=== PATIENT | female | born 1995 | race Two or more races ===

== ENCOUNTER 2024-11-09 19:41 | Emergency (ER) | payer MEDICAID, SELFPAY ==
[2024-11-09 19:42] VITALS: BMI 38.9
[2024-11-09 21:08] VITALS: BP 125/83; PULSE 73; RESP 18; TEMP 36.8; O2SAT 96
[2024-11-09] MEDS: DEXAMETHASONE SOD PHOS INJ 10 MG/ML VIAL PO (22:31)
--- NOTE | 2024-11-10 00:43 | XR_ITS ---
Examination: Ribs, left, with PA chest, 5 views Technique: Chest PA, RIBS AP, RPO, LPO, AP coned lower ribs 5 views Exam date and time: November 10, 2024 0053 hours INDICATIONS: Coughing with left rib pain today Findings: Normal heart size No pneumothorax No acute rib fractures IMPRESSION: No pneumothorax pulmonary contusion or hemothorax No acute rib fractures
--- NOTE | 2024-11-10 01:39 | PRELIM_ITS ---
Radiographs of the left ribs and chest (4 views). October 0053 hours. Clinical History: Pain with coughing Comparison: No prior study is available for comparison. Findings: The lungs are clear. There is no pleural effusion or pneumothorax. The cardiomediastinal silhouette is normal. There is no evidence of rib fracture. Impression: No evidence of rib fracture or pneumothorax. Report Electronically Signed By: Bishnu Jung 11/10/2024 1:38:28 AM [EST]
[2024-11-10 01:52] LABS: Basophils % (Auto) 0 % (0-2.5); Eosinophils % (Auto) 0 % (0-10); Hematocrit 38.6 % (36.0-46.0); Hemoglobin 13.5 g/dL (12.0-16.0); Immature Granulocytes % (Auto) 1 % (0-0); Immature Granulocytes Auto 0.14 Thou/mm3 (0.00-0.00); Lymphocytes # (Auto) 1.1 Thou/mm3 (1.0-4.8); Lymphocytes % (Auto) 8 % (10-50); Mean Corpuscular Hemoglobin 28.9 pg (25.0-35.0); Mean Corpuscular Volume 83 fL (80-100); Monocytes # (Auto) 0.4 Thou/mm3 (0.0-0.8); Monocytes % (Auto) 3 % (0-12); Neutrophils # (Auto) 11.5 Thou/mm3 (1.8-7.7); Neutrophils % (Auto) 87 % (37-80); Nucleated Red Blood Cell % 0 /100 WBC (0); Platelet Count 392 Thou/mm3 (140-440); RDW Standard Deviation 39.4 fL (36.4-46.3); Red Blood Count 4.67 Miln/mm3 (4.00-5.20); White Blood Count 13.1 Thou/mm3 (3.6-11.0)
[2024-11-10 02:04] VITALS: BP 122/85; PULSE 66; RESP 19; TEMP 36.7; O2SAT 96
[2024-11-10 02:18] LABS: D-Dimer < 250 ng/mL (<600)
[2024-11-10 02:20] LABS: Alanine Aminotransferase 58 U/L (10-49); Albumin, Serum 4.5 gm/dL (3.5-5.0); Albumin/Globulin Ratio 1.9 (1.2-2.2); Alkaline Phosphatase 88 U/L (46-116); Anion Gap 10 (7-16); Aspartate Amino Transferase 25 U/L (0-34); BUN/Creatinine Ratio 19 Ratio (12-20); Bilirubin,Total 0.4 mg/dL (0.3-1.2); Blood Urea Nitrogen 13 mg/dL (9-23); Calcium 9.2 mg/dL (8.3-10.6); Calcium (Corrected) 9.2 mg/dL (8.5-10.1); Carbon Dioxide 25.3 mMol/L (20.0-31.0); Chloride 106 mMol/L (98-107); Creatinine (Component) 0.7 mg/dL (0.6-1.3); Globulin 2.4 gm/dL (2.3-3.5); Glucose 123 mg/dL (74-106); Osmolality,Calculated 282 (275-295); Procalcitonin 0.04 ng/ml (0.0-0.49); Sodium 141 mMol/L (136-145); Total Protein 6.9 gm/dL (5.7-8.2); Troponin I < 0.002 ng/mL (0.0-0.045); eGFR > 60 See Note
--- NOTE | 2024-11-10 03:41 | PD.EDURI ---
Upper Respiratory Inf. RME/HPI General Chief Complaint: Flu Like Symptoms Stated Complaint: COUGH WITH LEFT RIB PAIN Time Seen by Provider: 11/09/24 21:10 Arrival date/time: 11/09/24 19:41 29F with no significant PMH presents to ED with 3 weeks of cough and 1 day of L rib pain when coughing. Patient finished a Z-izabela and course of Augmentin w/o relief. Limitations: no limitations Related Data Home Medications ?Medication ?Instructions ?Recorded ?Confirmed ondansetron 4 mg oral soluble film 4 mg PO Q8HR PRN Nausea 08/26/17 08/27/17 Previous Rx's ?Medication ?Instructions ?Recorded docusate sodium 100 mg capsule 100 mg PO BID #60 caps 08/27/17 (Colace) hydrocodone 7.5 mg-acetaminophen 1 tab PO Q6H PRN pain #25 tabs 08/27/17 325 mg tablet ([place]) Allergies Allergy/AdvReac Type Severity Reaction Status Date / Time aspirin Allergy Rash Verified 08/27/17 08:17 Review of Systems Review of Systems Systems Reviewed: All systems reviewed, normal except as documented Constitutional Constitutional: Reports system reviewed and no additional complaints, except as documented, Denies fever(s) and Denies headache(s) ENT Ears, Nose, Mouth, and Throat: Denies disequilibrium and Denies headache(s) Cardiovascular Cardiovascular: Reports system reviewed and no additional complaints, except as documented and Denies dyspnea Respiratory Respiratory: Reports system reviewed and no additional complaints, except as documented, Reports as per HPI, Reports cough, Denies dyspnea and Reports pain with cough Gastrointestinal Gastrointestinal: Reports system reviewed and no additional complaints, except as documented, Denies abdominal pain, Denies nausea and Denies vomiting Neurologic Neurologic: Reports system reviewed and no additional complaints, except as documented, Denies confusion, Denies disequilibrium and Denies headache(s) Psychiatric Psychiatric: Denies confusion Past Medical History Past Medical History NEUROLOGIC: Negative Neurological Disorders or Seizures CARDIAC: Negative Cardiac Disorders GASTROINTESTINAL: Negative Gastrointestinal Disorders GENITOURINARY: Negative Genitourinary Disorders REPRODUCTIVE: Negative Breast Cancer or Pelvic Inflammatory Disease MUSCULOSKELETAL: Negative Musculoskeletal Disorders ENDOCRINE: Negative Endocrine Disorders HEMATOLOGIC: Negative Blood Disorders OTHER HISTORY: Positive Chicken Pox; Negative Autoimmune Disease, Blood Transfusions, Blood Transfusion Reaction, Anesthesia Reactions, Organ Transplant, MRSA or Breast Cancer Family History FAMILY HISTORY: Positive Family Respiratory Disorders (ASTHMA MOTHER); Negative Family Psychiatric Problems, Family Cardiac Disorders, Family Gastrointestinal Problems, Family Cancer, Family Surgery or Family Anesthesia Reaction Surgical History SURGICAL: Negative Cardiac Surgery, Endocrine Surgery, Thyroidectomy, Ear Surgery, Abdominal Surgery, Nephrectomy, Joint Replacement, Neurologic Surgery, Mastectomy, Vasectomy or Organ Transplant Social History SMOKING STATUS: Never smoker ED Exam General Limitations: Present no limitations General appearance: Present alert and in no apparent distress Head Head exam: Present atraumatic Eye Eye exam: Present normal appearance, PERRL and EOMI ENT ENT exam: Present normal exam, normal oropharynx and mucous membranes moist Neck Neck exam: Present normal inspection, full ROM and trachea midline Chest Chest inspection: Present normal inspection and symmetric chest wall rise Respiratory Respiratory exam: Present normal lung sounds bilaterally Cardiovascular Cardiovascular exam: Present regular rate, normal rhythm and normal heart sounds Abdominal Exam Abdominal exam: Present soft and normal bowel sounds Extremities Exam Extremities exam: Present normal inspection and full ROM Back Exam Back exam: Present normal inspection and full ROM Neurological Exam Neurological exam: Present alert, oriented X3 and CN II-XII intact Psychiatric Psychiatric exam: Present normal affect and normal mood Skin Skin exam: Present warm, dry, intact and normal color Course Quality Measures none Orders Category Date Time Status XR ribs LT min 3V w CXR1V Stat Exams 11/10/24 00:43 Taken CBC Stat Lab 11/10/24 01:30 Completed CMP [Comprehensive Metabolic Panel] Stat Lab 11/10/24 01:30 Completed D-Dimer Stat Lab 11/10/24 01:30 Completed Procalcitonin Stat Lab 11/10/24 01:30 Completed Troponin I Stat Lab 11/10/24 01:30 Completed Dexamethasone Inj [Decadron Inj] Med 11/09/24 22:17 Discontinued 10 mg PO X1 ONE Vital Signs Vital signs: Vital Signs Temperature 98.2 F 11/09/24 21:08 Pulse Rate 73 11/09/24 21:08 Respiratory Rate 18 11/09/24 21:08 Blood Pressure 125/83 11/09/24 21:08 Pulse Oximetry (%) 96 11/09/24 21:08 Oxygen Delivery Method Room Air 11/09/24 21:08 O2 at 96% on RA and WNLs Upper Respiratory Infection MDM Narrative MDM Narrative:: 29F with no significant PMH presents to ED with 3 weeks of cough and 1 day of L rib pain when coughing. Patient finished a Z-izabela and course of Augmentin w/o relief. Physical exam reveals clear lungs. Normal WOB. Patient is afebrile, calm, and alert. Steroids did not improve symptoms. CXR normal. No mild leukocytosis. CMP unremarkable. Procal normal. D-dimer and trop neg. Patient data External records reviewed:: [facility] previous records Clinical information provided by:: patient Social determinants that could affect healthcare access:: none Patient has the following chronic illnesses:: none How is presenting disease/condition affected by chronic disease/condition?: no chronic disease Evaluation data The following diagnostics were reviewed and interpreted by me:: lab results and radiology exam(s) Lab and/or radiology exams considered but not ordered:: ordered Interpretation Summary: above Medications / Prescriptions Medications or Prescriptions considered but not ordered:: ordered Medication administrations:: Medication Administration History Discontinued Medications Dexamethasone Sodium Phosphate (Dexamethasone Sod Phos Inj 10 Mg/Ml Vial) 10 mg PO X1 ONE Stop: 11/09/24 22:18 Last Admin: 11/09/24 22:31 Dose: 10 mg Documented By: ELLIOT Comments: po above Consultations Consultation(s) initiated? (list below): No Diagnosis Upper Respiratory Differential Diagnosis: upper respiratory infection, croup, otitis media, sinusitis, viral infection, bronchitis, influenza, pharyngitis and other (pleurisy) Most likely diagnosis given after review of the tests above:: pleurisy Admission Indicated Admission indicated?: not indicated Admission Request Was there a request for admission?: No Disposition Plan Disposition Plan: Discharge Discharge Attestation Discharge Attestation: The patient and all family members were given an opportunity to ask questions and understood the discharge instructions. Discharge instructions specifically effects, indications for sooner follow up or return to the emergency department, and the expected course of current diagnosis. Patient condition: Stable Discharge Plan Plan Patient Disposition: HOME (Self Care) Discharge Disposition comment: Stable Prescriptions/Referrals Prescriptions/Med Rec: No Action ondansetron 4 mg Film 4 mg PO Q8HR PRN (Reason: Nausea) hydrocodone-acetaminophen [[place]] 7.5-325 mg tablet 1 tab PO Q6H MDD 4 PRN (Reason: pain) Qty: 25 0RF docusate sodium [Colace] 100 mg capsule 100 mg PO BID Qty: 60 0RF Referrals: Mariia Hdz FNP [Primary Care Provider] - In 1 week Problem List Clinical Impression: Pleurisy without effusion Patient/Caregiver Discharge Instructions Education Materials: ED Pleurisy Additional Instructions: Please follow-up with PCP within 24-48 hours and return immediately if symptoms worsen. NSAIDs tend to work better for this type of pain. Print Language: Syrian Stand Alone Forms: Patient Portal Info Letter PA/CARRIAGE DOGGER Supervising Physician PA/CARRIAGE DOGGER Supervising Physician: Dr. Sarmiento
== END 2024-11-10 02:28 | disposition home or self-care (01) ==
PROVIDERS: Physician Assistant; Emergency Provider Emergency Medicine; PCP Registered Nurse Community Health
DX: R09.1 Pleurisy (principal)
CPT/HCPCS: 36415; 71101; 80053; 84145; 84484; 85025; 85379; 99283; J1100